=== PATIENT | female | born 1950 | race Caucasian/White ===

== ENCOUNTER 2024-03-03 19:45 | Inpatient (IN) | payer OTHER ==
[2024-03-03 21:16] VITALS: BP 131/76; PULSE 85; RESP 18; TEMP 98; O2SAT 95
[2024-03-04 03:44] VITALS: BP 156/90; PULSE 80; RESP 18; TEMP 97.7; O2SAT 97
[2024-03-04] MEDS ORDERED: LAMO-24 PO (05:16)
[2024-03-04] MEDS ORDERED: HYDR-4527 PO (05:16)
[2024-03-04] MEDS ORDERED: AMAN-24 PO (05:16)
[2024-03-04] MEDS ORDERED: DOCU-412 PO (05:16)
[2024-03-04] MEDS ORDERED: CYAN500T56 PO (05:16)
[2024-03-04] MEDS ORDERED: BENZ1LOZ50 PO (05:16)
[2024-03-04] MEDS ORDERED: PRAM1.5T12 PO (05:16)
[2024-03-04] MEDS ORDERED: QUET100T PO (05:16)
[2024-03-04] MEDS ORDERED: QUET25TA PO (05:16)
[2024-03-04] MEDS ORDERED: CARB-225 PO (05:16)
[2024-03-04] MEDS ORDERED: BENZ-227 PO (05:16)
[2024-03-04] MEDS ORDERED: METH1TAB66 PO (05:16)
[2024-03-04] MEDS ORDERED: CLON-592 PO (05:16)
[2024-03-04] MEDS ORDERED: NALO4SPR NASAL (05:16)
[2024-03-04] MEDS ORDERED: OMEP20 PO (05:16)
[2024-03-04] MEDS ORDERED: POLY17PO47 PO (05:16)
[2024-03-04] MEDS ORDERED: PSYL575P22 PO (05:16)
[2024-03-04] MEDS ORDERED: CARB1TAB36 PO (05:16)
[2024-03-04] MEDS ORDERED: ACET-3385 PO (05:16)
[2024-03-04] MEDS ORDERED: VENL-67 PO (05:16)
[2024-03-04] MEDS ORDERED: LEVO75 PO (05:16)
[2024-03-04] MEDS ORDERED: XALA2.5OS OU (05:16)
[2024-03-04] MEDS ORDERED: LOPE-232 PO (05:16)
[2024-03-04] MEDS ORDERED: NYST30CR9 TP (05:16)
[2024-03-04] MEDS ORDERED: CHOL25TA4 PO (05:16)
[2024-03-04] MEDS ORDERED: MELA5TAB40 PO (05:16)
[2024-03-04] MEDS ORDERED: FLUT16SP NASAL (05:16)
[2024-03-04 07:48] LABS: BASOPHILS % (AUTO) 0.5 % (0.0-2.0); EOSINOPHILS % (AUTO) 3.5 % (1.0-6.0); HEMATOCRIT 39.1 % (36-46); HEMOGLOBIN 12.4 g/dL (12.0-16.0); LYMPHOCYTES # (AUTO) 1.5 K/uL (1.0-4.8); LYMPHOCYTES % (AUTO) 22.1 % (22.0-44.0); MEAN CORPUSCULAR HEMOGLOBIN 27.8 pg (26.0-34.0); MEAN CORPUSCULAR HGB CONC 31.7 G/dL (31.0-37.0); MEAN CORPUSCULAR VOLUME 88 fL (80-100); MONOCYTES # (AUTO) 0.6 K/uL (0.1-1.0); MONOCYTES % (AUTO) 9.2 % (2.0-9.0); NEUTROPHILS # (AUTO) 4.3 K/uL (1.8-7.7); NEUTROPHILS % (AUTO) 64.7 % (40.0-70.0); PLATELET COUNT (AUTO) 245 K/uL (150-450); RED BLOOD CELL COUNT(AUTO) 4.47 MIL/uL (4.00-5.20); RED CELL DISTRIBUTION WIDTH 16.1 % (11.5-14.5); WHITE BLOOD COUNT (AUTO) 6.6 K/uL (4.5-11.0)
[2024-03-04] MEDS ORDERED: MAGNESIUM HYDROXIDE SUSPENSION 30 ML UDCUP PO PRN (08:00)
[2024-03-04] MEDS ORDERED: ACETAMINOPHEN 325 MG TABLET PO PRN (08:00)
[2024-03-04] MEDS ORDERED: DEXTROSE 50%-WATER 25 GM/50 ML SYRINGE IVP PRN (08:00)
[2024-03-04 08:24] LABS: ANION GAP 9 mmol/L (8-16); CALCIUM, TOTAL 9.3 mg/dL (8.8-10.5); CARBON DIOXIDE 27 mmol/L (22-29); CHLORIDE 105 mmol/L (98-107); CREATININE 0.44 mg/dL (0.60-1.30); GLOMERULAR FILTR. RATE CALC > 60 mL/min (>60); GLUCOSE,RANDOM 91 mg/dL (70-110); SODIUM SERUM 141 mmol/L (136-145); UREA NITROGEN, BLOOD 10 mg/dL (7-18)
[2024-03-04 08:30] VITALS: BP 160/60; PULSE 78; RESP 18; TEMP 97; O2SAT 99
[2024-03-04] MEDS: DOCUSATE SODIUM 100 MG CAPSULE PO SCH (10:19)
[2024-03-04] MEDS: LEVOTHYROXINE SODIUM 75 MCG TABLET PO SCH (10:19)
[2024-03-04] MEDS: MULTIVITAMINS WITH MINERALS, THERAPEUTIC TABLET PO SCH (10:19)
[2024-03-04] MEDS: HEPARIN SODIUM,PORCINE 5,000 UNITS/ML VIAL SQ SCH (10:19)
[2024-03-04] MEDS: QUEtiapine FUMARATE 25 MG TABLET PO SCH (10:20)
[2024-03-04] MEDS: FAMOTIDINE 20 MG TABLET PO SCH (10:20)
[2024-03-04] MEDS: CARBIDOPA/LEVODOPA 50-200 MG ER TABLET PO SCH (10:21)
[2024-03-04] MEDS: AMANTADINE HCL 100 MG CAPSULE PO SCH (10:22)
[2024-03-04] MEDS: LamoTRIgine 100 MG TABLET PO SCH (10:22)
[2024-03-04] MEDS: VENLAFAXINE HCL 75 MG ER CAPSULE PO SCH (10:23)
[2024-03-04 15:17] LABS: APPEARANCE,URINE CLEAR (CLEAR); BILIRUBIN,URINE NEGATIVE (NEGATIVE); COLOR,URINE LIGHT YELLOW (YELLOW); GLUCOSE, URINE (UA) NEGATIVE (NEGATIVE); KETONES,URINE NEGATIVE (NEGATIVE); LEUKOCYTE ESTERASE ,URINE TRACE (NEGATIVE); NITRATE,URINE NEGATIVE (NEGATIVE); OCCULT BLOOD,URINE NEGATIVE (NEGATIVE); PH,URINE 7.5 (5.0-8.0); PROTEIN,URINE TRACE mg/dL (NEGATIVE); SPECIFIC GRAVITIY, URINE 1.011 (1.003-1.030); UROBILINOGEN,URINE <=1.0 mg/dL (<=1.0)
[2024-03-04 15:40] LABS: BACTERIA,URINE Few /HPF (None Seen); RBC,URINE 0-2 /HPF (0-2); SQUAMOUS EPITHELIAL CELL,UR Few /LPF (None Seen); WBC,URINE 0-2 /HPF (0-5)
[2024-03-04 16:06] VITALS: BP 124/80; PULSE 85; RESP 18; TEMP 97.4; O2SAT 98
[2024-03-04 17:29] LABS: BASOPHILS % (AUTO) 0.4 % (0.0-2.0); EOSINOPHILS % (AUTO) 1.8 % (1.0-6.0); HEMATOCRIT 35.9 % (36-46); HEMOGLOBIN 11.6 g/dL (12.0-16.0); LYMPHOCYTES # (AUTO) 1.6 K/uL (1.0-4.8); LYMPHOCYTES % (AUTO) 26.8 % (22.0-44.0); MEAN CORPUSCULAR HEMOGLOBIN 28.1 pg (26.0-34.0); MEAN CORPUSCULAR HGB CONC 32.4 G/dL (31.0-37.0); MEAN CORPUSCULAR VOLUME 87 fL (80-100); MONOCYTES # (AUTO) 0.5 K/uL (0.1-1.0); MONOCYTES % (AUTO) 8.3 % (2.0-9.0); NEUTROPHILS # (AUTO) 3.9 K/uL (1.8-7.7); NEUTROPHILS % (AUTO) 62.7 % (40.0-70.0); PLATELET COUNT (AUTO) 233 K/uL (150-450); RED BLOOD CELL COUNT(AUTO) 4.15 MIL/uL (4.00-5.20); WHITE BLOOD COUNT (AUTO) 6.1 K/uL (4.5-11.0)
[2024-03-04 19:26] LABS: GLUCOMETER DEV NAME(LOC) 6S.2; GLUCOSE,POINT OF CARE 88 MG/DL (70-110)
[2024-03-04 20:00] VITALS: BP 154/96; PULSE 89; RESP 18; TEMP 97.9; O2SAT 96
[2024-03-04] MEDS: LATANOPROST 0.005% 2.5 ML OPHTHALMIC SOLUTION OU SCH (21:26)
[2024-03-04] MEDS: QUEtiapine FUMARATE 100 MG TABLET PO SCH (21:27)
[2024-03-04] MEDS: ClonazePAM 0.5 MG TABLET PO SCH (21:27)
[2024-03-05 05:28] VITALS: BP 153/93; PULSE 74; RESP 19; TEMP 97.7; O2SAT 95
[2024-03-05 06:56] LABS: GLUCOMETER DEV NAME(LOC) 6S.2; GLUCOSE,POINT OF CARE 82 MG/DL (70-110)
[2024-03-05 06:56] LABS: GLUCOMETER DEV NAME(LOC) 6S.2; GLUCOSE,POINT OF CARE 83 MG/DL (70-110)
[2024-03-05 07:32] VITALS: BP 156/98; PULSE 76; RESP 18; TEMP 98.2; O2SAT 96
[2024-03-05] MEDS: QUEtiapine FUMARATE 25 MG TABLET PO SCH (08:26)
[2024-03-05 15:23] VITALS: BP 161/95; PULSE 83; RESP 20; TEMP 98.4; O2SAT 100
[2024-03-05 20:00] VITALS: BP 126/68; PULSE 86; RESP 19; TEMP 98; O2SAT 98
[2024-03-06 04:34] VITALS: BP 131/84; PULSE 90; RESP 20; TEMP 97.8; O2SAT 96
[2024-03-06 04:51] LABS: GLUCOMETER DEV NAME(LOC) 6S.2; GLUCOSE,POINT OF CARE 96 MG/DL (70-110)
[2024-03-06 04:51] LABS: GLUCOMETER DEV NAME(LOC) 6S.2; GLUCOSE,POINT OF CARE 112 MG/DL (70-110)
[2024-03-06 06:55] LABS: GLUCOMETER DEV NAME(LOC) 6S.2; GLUCOSE,POINT OF CARE 127 MG/DL (70-110)
[2024-03-06 07:41] VITALS: BP 136/94; PULSE 86; RESP 20; TEMP 97.8; O2SAT 99
[2024-03-06] MEDS: INSULIN LISPRO 100 UNITS/ML SQ PRN (11:52)
[2024-03-06 12:20] LABS: GLUCOMETER DEV NAME(LOC) 6S.2; GLUCOSE,POINT OF CARE 281 MG/DL (70-110)
[2024-03-06] MEDS ORDERED: QUET300T2 PO (13:47)
[2024-03-06 15:54] VITALS: BP 133/85; PULSE 94; RESP 20; TEMP 97.9; O2SAT 97
[2024-03-06] MEDS: QUEtiapine FUMARATE 25 MG TABLET PO SCH (16:49)
[2024-03-06 17:56] LABS: GLUCOMETER DEV NAME(LOC) 6S.2; GLUCOSE,POINT OF CARE 88 MG/DL (70-110)
[2024-03-06 19:45] VITALS: BP 122/63; PULSE 94; RESP 18; TEMP 97.4; O2SAT 97
[2024-03-06 21:00] LABS: GLUCOMETER DEV NAME(LOC) 6S.2; GLUCOSE,POINT OF CARE 153 MG/DL (70-110)
[2024-03-07 06:22] VITALS: BP 141/82; PULSE 89; RESP 18
[2024-03-07 07:43] VITALS: BP 128/61; PULSE 94; RESP 19; TEMP 98; O2SAT 96
[2024-03-07 14:45] LABS: GLUCOMETER DEV NAME(LOC) 6S.2; GLUCOSE,POINT OF CARE 91 MG/DL (70-110)
[2024-03-07 16:41] VITALS: BP 132/84; PULSE 86; RESP 19; TEMP 98; O2SAT 96
[2024-03-07 19:56] LABS: GLUCOMETER DEV NAME(LOC) 6S.2; GLUCOSE,POINT OF CARE 107 MG/DL (70-110)
[2024-03-08 00:11] VITALS: BP 146/89; PULSE 85; RESP 18; TEMP 98.3; O2SAT 94
[2024-03-08 00:50] LABS: GLUCOMETER DEV NAME(LOC) 6S.2; GLUCOSE,POINT OF CARE 116 MG/DL (70-110)
[2024-03-08 05:02] VITALS: BP 133/70; PULSE 92; RESP 18; TEMP 97.9; O2SAT 96
[2024-03-08 07:05] LABS: GLUCOMETER DEV NAME(LOC) 6S.2; GLUCOSE,POINT OF CARE 72 MG/DL (70-110)
[2024-03-08 07:51] VITALS: BP 145/87; PULSE 83; RESP 18; TEMP 97.9; O2SAT 99
[2024-03-08 12:30] LABS: BASOPHILS % (AUTO) 0.4 % (0.0-2.0); EOSINOPHILS % (AUTO) 1.8 % (1.0-6.0); HEMOGLOBIN 12.5 g/dL (12.0-16.0); LYMPHOCYTES # (AUTO) 1.1 K/uL (1.0-4.8); LYMPHOCYTES % (AUTO) 22.7 % (22.0-44.0); MEAN CORPUSCULAR HGB CONC 32.1 G/dL (31.0-37.0); MEAN CORPUSCULAR VOLUME 87 fL (80-100); MONOCYTES # (AUTO) 0.4 K/uL (0.1-1.0); MONOCYTES % (AUTO) 7.3 % (2.0-9.0); NEUTROPHILS # (AUTO) 3.4 K/uL (1.8-7.7); NEUTROPHILS % (AUTO) 67.8 % (40.0-70.0); PLATELET COUNT (AUTO) 235 K/uL (150-450); RED BLOOD CELL COUNT(AUTO) 4.48 MIL/uL (4.00-5.20); RED CELL DISTRIBUTION WIDTH 16.1 % (11.5-14.5)
[2024-03-08 12:31] LABS: GLUCOMETER DEV NAME(LOC) 6S.2; GLUCOSE,POINT OF CARE 97 MG/DL (70-110)
[2024-03-08 12:40] LABS: ANION GAP 7 mmol/L (8-16); CALCIUM, TOTAL 9.6 mg/dL (8.8-10.5); CARBON DIOXIDE 31 mmol/L (22-29); CHLORIDE 103 mmol/L (98-107); CREATININE 0.61 mg/dL (0.60-1.30); GLOMERULAR FILTR. RATE CALC > 60 mL/min (>60); GLUCOSE,RANDOM 108 mg/dL (70-110); POTASSIUM 4.2 mmol/L (3.5-5.1); SODIUM SERUM 141 mmol/L (136-145); UREA NITROGEN, BLOOD 8 mg/dL (7-18)
[2024-03-08 15:01] VITALS: BP 127/78; PULSE 98; RESP 19; TEMP 98; O2SAT 95
[2024-03-08 19:15] LABS: GLUCOMETER DEV NAME(LOC) 6S.2; GLUCOSE,POINT OF CARE 124 MG/DL (70-110)
[2024-03-08 19:39] VITALS: BP 140/80; PULSE 97; RESP 18; TEMP 98.2; O2SAT 98
[2024-03-09 00:54] VITALS: BP 138/86; PULSE 89; RESP 18; TEMP 97.9; O2SAT 97
[2024-03-09 04:30] VITALS: PULSE 87; RESP 18; TEMP 97.8; O2SAT 96
[2024-03-09 05:30] VITALS: BP 150/86
[2024-03-09 07:42] VITALS: BP 148/88; PULSE 82; RESP 18; TEMP 97.7; O2SAT 98
[2024-03-09 07:51] LABS: GLUCOMETER DEV NAME(LOC) 6S.2; GLUCOSE,POINT OF CARE 87 MG/DL (70-110)
[2024-03-09 07:51] LABS: GLUCOMETER DEV NAME(LOC) 6S.2; GLUCOSE,POINT OF CARE 105 MG/DL (70-110)
[2024-03-09 10:32] LABS: COVID AG,FIA SOURCE NASAL SWAB
[2024-03-09 10:53] LABS: SARS-COV2 (COVID) ANTIGEN,FIA Negative (Negative)
[2024-03-09 15:42] VITALS: BP 128/74; PULSE 101; RESP 18; TEMP 98.2; O2SAT 94
[2024-03-09 16:06] VITALS: O2SAT 99
[2024-03-09 17:11] LABS: GLUCOMETER DEV NAME(LOC) 6S.2; GLUCOSE,POINT OF CARE 142 MG/DL (70-110)
[2024-03-09 21:30] LABS: GLUCOMETER DEV NAME(LOC) 3E.I 2; GLUCOSE,POINT OF CARE 104 MG/DL (70-110)
== END 2024-03-09 16:45 | DRG 885 ==
LOC: 6S 19:45
PROVIDERS: ADMIT Internal Medicine; ATTEND Internal Medicine
DX: F25.1 Schizoaffective disorder, depressive type (principal); N39.0 Urinary tract infection, site not specified; I50.32 Chronic diastolic (congestive) heart failure; J96.10 Chronic respiratory failure, unspecified whether with hypoxia or hypercapnia; E03.9 Hypothyroidism, unspecified; G20.A1 Parkinson's disease without dyskinesia, without mention of fluctuations; G47.33 Obstructive sleep apnea (adult) (pediatric); M81.0 Age-related osteoporosis without current pathological fracture; Z20.822 Contact with and (suspected) exposure to COVID-19; K21.9 Gastro-esophageal reflux disease without esophagitis; R91.1 Solitary pulmonary nodule; F41.9 Anxiety disorder, unspecified; Z66 Do not resuscitate; D63.8 Anemia in other chronic diseases classified elsewhere; I11.0 Hypertensive heart disease with heart failure; G25.81 Restless legs syndrome; K44.9 Diaphragmatic hernia without obstruction or gangrene; I87.2 Venous insufficiency (chronic) (peripheral); E11.40 Type 2 diabetes mellitus with diabetic neuropathy, unspecified; Z79.899 Other long term (current) drug therapy; Z95.828 Presence of other vascular implants and grafts; Z86.718 Personal history of other venous thrombosis and embolism; Z88.1 Allergy status to other antibiotic agents; Z88.8 Allergy status to other drugs, medicaments and biological substances; Z91.048 Other nonmedicinal substance allergy status
CPT/HCPCS: 71045; 80048; 81001; 82962; 85025; 87081; 92610; 97163; 97167; 97530; 97535; J1644; 36415-L1; 36415-TC

== ENCOUNTER 2024-03-07 10:12 | Inpatient (IN) | payer OTHER ==
[~2024-03-07] VITALS: Ht 154.9 cm; Wt 66.2 kg
[~2024-03-07 10:12] MED LIST: ACET-3385 PO; AMAN-24 PO; BENZ-227 PO; BENZ1LOZ50 PO; CARB-225 PO; CARB1TAB36 PO; CHOL25TA4 PO; CLON-592 PO; CYAN500T56 PO; DOCU-412 PO; FLUT16SP NASAL; HYDR-4527 PO; LAMO-24 PO; LEVO75 PO; LOPE-232 PO; MELA5TAB40 PO; METH1TAB66 PO; NALO4SPR NASAL; NYST30CR9 TP; OMEP20 PO; POLY17PO47 PO; PRAM1.5T12 PO; PSYL575P22 PO; QUET25TA PO; QUET300T2 PO; VENL-67 PO; XALA2.5OS OU
[2024-03-09] MEDS ORDERED: LORazepam 1 MG TABLET PO PRN (10:45)
[2024-03-09 17:04] VITALS: BP 138/91; PULSE 95; RESP 18; TEMP 98.8; O2SAT 98
[2024-03-09 20:55] VITALS: BP 138/81; PULSE 97; RESP 18; TEMP 98.9; O2SAT 97
[2024-03-09] MEDS: QUEtiapine FUMARATE 25 MG TABLET PO SCH (21:29)
[2024-03-09] MEDS: ClonazePAM 0.5 MG TABLET PO SCH (21:29)
[2024-03-09] MEDS: AMANTADINE HCL 100 MG CAPSULE PO SCH (21:29)
[2024-03-09] MEDS ORDERED: DEXTROSE 50%-WATER 25 GM/50 ML SYRINGE IVP PRN (21:30)
[2024-03-09] MEDS: LATANOPROST 0.005% 2.5 ML OPHTHALMIC SOLUTION OU SCH (22:00)
[2024-03-10] MEDS: INSULIN LISPRO 100 UNITS/ML SQ PRN (06:36)
[2024-03-10] MEDS: LEVOTHYROXINE SODIUM 75 MCG TABLET PO SCH (06:37)
[2024-03-10 06:40] LABS: GLUCOMETER DEV NAME(LOC) 3E.I 2; GLUCOSE,POINT OF CARE 103 MG/DL (70-110)
[2024-03-10 08:01] VITALS: BP 160/89; PULSE 82; RESP 18; TEMP 98.1; O2SAT 95
[2024-03-10] MEDS: CARBIDOPA/LEVODOPA 50-200 MG ER TABLET PO SCH (08:11)
[2024-03-10] MEDS: VENLAFAXINE HCL 75 MG ER CAPSULE PO SCH (08:11)
[2024-03-10] MEDS: AmLODIPine BESYLATE 5 MG TABLET PO SCH (08:14)
[2024-03-10 09:11] LABS: TROPONIN I-HIGH SENSITIVITY 12 ng/L (<51)
[2024-03-10] MEDS ORDERED: CloNIDine HCL 0.1 MG TABLET PO PRN (10:45)
[2024-03-10] MEDS ORDERED: MAG HYDROX/ALUMINUM HYD/SIMETH ES 30 ML SUSPENSION UDCUP PO PRN (10:45)
[2024-03-10] MEDS ORDERED: ALBUTEROL SULFATE HFA 90 MCG/PUFF 8 GM INHALER IH PRN (10:45)
[2024-03-10] MEDS ORDERED: MAGNESIUM HYDROXIDE SUSPENSION 30 ML UDCUP PO PRN (10:45)
[2024-03-10] MEDS ORDERED: PETROLATUM,WHITE 28 GM JELLY TP PRN (10:45)
[2024-03-10] MEDS ORDERED: LOPERAMIDE HCL 2 MG CAPSULE PO PRN (10:45)
[2024-03-10 11:36] LABS: GLUCOMETER DEV NAME(LOC) 3EX.2; GLUCOSE,POINT OF CARE 145 MG/DL (70-110)
[2024-03-10] MEDS: PRAMIPEXOLE DI HCL 1.5 MG PO SCH (12:25)
[2024-03-10 17:06] LABS: GLUCOMETER DEV NAME(LOC) 3EX.2; GLUCOSE,POINT OF CARE 121 MG/DL (70-110)
[2024-03-10 20:28] VITALS: BP 141/61; PULSE 18; RESP 18; TEMP 97.5; O2SAT 95
[2024-03-10 21:16] LABS: GLUCOMETER DEV NAME(LOC) 3E.I 2; GLUCOSE,POINT OF CARE 146 MG/DL (70-110)
[2024-03-10] MEDS: ZOLPIDEM TARTRATE 5 MG TABLET PO PRN (21:24)
[2024-03-11 06:15] LABS: GLUCOMETER DEV NAME(LOC) 3E.I 2; GLUCOSE,POINT OF CARE 151 MG/DL (70-110)
[2024-03-11] MEDS: FLUTICASONE PROPIONATE 50 MCG/SPRAY 16 GM NASAL SPRAY NASAL SCH (08:12)
[2024-03-11 11:36] LABS: GLUCOMETER DEV NAME(LOC) 3EX.2; GLUCOSE,POINT OF CARE 71 MG/DL (70-110)
[2024-03-11 12:31] LABS: ALANINE AMINOTRANSFERASE 10 U/L (12-78); ALBUMIN 3.3 g/dL (3.4-5.0); ALKALINE PHOSPHATASE 91 U/L (46-116); ANION GAP 6 mmol/L (8-16); ASPARTATE AMINOTRANSFERASE 25 U/L (15-37); BILIRUBIN,TOTAL 0.4 mg/dL (0.1-1.0); CALCIUM, TOTAL 9.3 mg/dL (8.8-10.5); CARBON DIOXIDE 30 mmol/L (22-29); CHLORIDE 101 mmol/L (98-107); CHOLESTEROL 170 mg/dL (131-200); CREATININE 0.65 mg/dL (0.60-1.30); GLOMERULAR FILTR. RATE CALC > 60 mL/min (>60); GLUCOSE,RANDOM 98 mg/dL (70-110); HDL CHOLESTEROL 56 mg/dL (40-60); LDL CHOL (CALC.) 101 mg/dL (0-130); POTASSIUM 4.2 mmol/L (3.5-5.1); SODIUM SERUM 137 mmol/L (136-145); TOTAL PROTEIN, SERUM 7.1 g/dL (6.4-8.2); TRIGLYCERIDES 64 mg/dL (15-150); UREA NITROGEN, BLOOD 13 mg/dL (7-18)
[2024-03-11] MEDS: ONDANSETRON 4 MG TABLET PO PRN (12:39)
[2024-03-11 12:42] LABS: THYROID STIMULATING HORMONE 1.61 uIU/mL (0.36-3.74)
[2024-03-11 14:44] VITALS: BP 127/93; PULSE 87; RESP 19; TEMP 98.5; O2SAT 98
[2024-03-11 16:41] LABS: GLUCOMETER DEV NAME(LOC) 3E.I 2; GLUCOSE,POINT OF CARE 224 MG/DL (70-110)
[2024-03-11] MEDS: LORazepam 1 MG TABLET PO PRN (17:46)
[2024-03-11 20:35] VITALS: BP 103/61; PULSE 87; RESP 18; TEMP 97.6; O2SAT 96
[2024-03-11 20:35] LABS: GLUCOMETER DEV NAME(LOC) 3E.I 2; GLUCOSE,POINT OF CARE 79 MG/DL (70-110)
[2024-03-12 06:16] LABS: GLUCOMETER DEV NAME(LOC) 3E.I 2; GLUCOSE,POINT OF CARE 42 MG/DL (70-110)
[2024-03-12 06:16] LABS: GLUCOMETER DEV NAME(LOC) 3E.I 2; GLUCOSE,POINT OF CARE 42 MG/DL (70-110)
[2024-03-12 06:31] LABS: GLUCOMETER DEV NAME(LOC) 3E.I 2; GLUCOSE,POINT OF CARE 73 MG/DL (70-110)
[2024-03-12 08:33] VITALS: BP 106/65; PULSE 84; RESP 18; TEMP 97.7; O2SAT 94
[2024-03-12 09:38] LABS: BASOPHILS % (AUTO) 0.4 % (0.0-2.0); HEMATOCRIT 38.1 % (36-46); HEMOGLOBIN 12.2 g/dL (12.0-16.0); LYMPHOCYTES # (AUTO) 0.9 K/uL (1.0-4.8); LYMPHOCYTES % (AUTO) 16.2 % (22.0-44.0); MEAN CORPUSCULAR HEMOGLOBIN 28.1 pg (26.0-34.0); MEAN CORPUSCULAR VOLUME 88 fL (80-100); MONOCYTES # (AUTO) 0.5 K/uL (0.1-1.0); MONOCYTES % (AUTO) 8.6 % (2.0-9.0); NEUTROPHILS % (AUTO) 71.8 % (40.0-70.0); PLATELET COUNT (AUTO) 237 K/uL (150-450); RED BLOOD CELL COUNT(AUTO) 4.33 MIL/uL (4.00-5.20); RED CELL DISTRIBUTION WIDTH 16.1 % (11.5-14.5); WHITE BLOOD COUNT (AUTO) 5.6 K/uL (4.5-11.0)
[2024-03-12 11:40] LABS: GLUCOMETER DEV NAME(LOC) 3EX.2; GLUCOSE,POINT OF CARE 106 MG/DL (70-110)
[2024-03-12 17:25] LABS: GLUCOMETER DEV NAME(LOC) 3EX.2; GLUCOSE,POINT OF CARE 118 MG/DL (70-110)
[2024-03-12 21:10] LABS: GLUCOMETER DEV NAME(LOC) 3E.I 2; GLUCOSE,POINT OF CARE 127 MG/DL (70-110)
[2024-03-12 21:45] VITALS: RESP 18
[2024-03-13 05:46] LABS: GLUCOMETER DEV NAME(LOC) 3E.I 2; GLUCOSE,POINT OF CARE 95 MG/DL (70-110)
[2024-03-13 08:52] VITALS: BP 112/68; PULSE 83; RESP 18; TEMP 97.3; O2SAT 96
[2024-03-13 12:26] LABS: GLUCOMETER DEV NAME(LOC) 3E.I 2; GLUCOSE,POINT OF CARE 88 MG/DL (70-110)
[2024-03-13 17:51] LABS: GLUCOMETER DEV NAME(LOC) 3E.I 2; GLUCOSE,POINT OF CARE 107 MG/DL (70-110)
[2024-03-13 20:30] VITALS: BP 112/65; PULSE 73; RESP 18; TEMP 98; O2SAT 98
[2024-03-13 20:51] LABS: GLUCOMETER DEV NAME(LOC) 3E.I 2; GLUCOSE,POINT OF CARE 91 MG/DL (70-110)
[2024-03-13] MEDS: QUEtiapine FUMARATE 100 MG TABLET PO PRN (20:57)
[2024-03-14 05:46] LABS: GLUCOMETER DEV NAME(LOC) 3E.I 2; GLUCOSE,POINT OF CARE 110 MG/DL (70-110)
[2024-03-14 09:15] VITALS: BP 105/69; PULSE 77; RESP 18; TEMP 97.9; O2SAT 97
[2024-03-14 11:51] LABS: GLUCOMETER DEV NAME(LOC) 3E.I 2; GLUCOSE,POINT OF CARE 121 MG/DL (70-110)
[2024-03-14 16:36] LABS: GLUCOMETER DEV NAME(LOC) 3E.I 2; GLUCOSE,POINT OF CARE 122 MG/DL (70-110)
[2024-03-14 19:46] LABS: GLUCOMETER DEV NAME(LOC) 3E.I 2; GLUCOSE,POINT OF CARE 107 MG/DL (70-110)
[2024-03-14 20:21] VITALS: BP 112/78; PULSE 81; RESP 18; TEMP 97.6; O2SAT 98
[2024-03-15 06:50] LABS: GLUCOMETER DEV NAME(LOC) 3E.I 2; GLUCOSE,POINT OF CARE 113 MG/DL (70-110)
[2024-03-15 06:50] LABS: GLUCOMETER DEV NAME(LOC) 3E.I 2; GLUCOSE,POINT OF CARE 65 MG/DL (70-110)
[2024-03-15 10:57] VITALS: BP 120/65; PULSE 90; RESP 19; TEMP 98.8; O2SAT 90
[2024-03-15 12:10] LABS: GLUCOMETER DEV NAME(LOC) 3EX.2; GLUCOSE,POINT OF CARE 90 MG/DL (70-110)
[2024-03-15 18:11] LABS: GLUCOMETER DEV NAME(LOC) 3EX.2; GLUCOSE,POINT OF CARE 102 MG/DL (70-110)
[2024-03-15 20:06] LABS: GLUCOMETER DEV NAME(LOC) 3E.I 2; GLUCOSE,POINT OF CARE 92 MG/DL (70-110)
[2024-03-15 22:14] VITALS: BP 97/60; PULSE 79; RESP 18; TEMP 97.3; O2SAT 98
[2024-03-16 06:45] LABS: GLUCOMETER DEV NAME(LOC) 3E.I 2; GLUCOSE,POINT OF CARE 98 MG/DL (70-110)
[2024-03-16 06:50] LABS: GLUCOMETER DEV NAME(LOC) 3E.I 2; GLUCOSE,POINT OF CARE 57 MG/DL (70-110)
[2024-03-16 09:03] VITALS: BP 140/74; PULSE 84; RESP 16; TEMP 98.3; O2SAT 97
[2024-03-16 22:11] LABS: GLUCOMETER DEV NAME(LOC) 3E.I 2; GLUCOSE,POINT OF CARE 90 MG/DL (70-110)
[2024-03-16 23:50] VITALS: BP 131/82; PULSE 90; RESP 18; TEMP 97.1; O2SAT 98
[2024-03-17 05:51] LABS: GLUCOMETER DEV NAME(LOC) 3E.I 2; GLUCOSE,POINT OF CARE 59 MG/DL (70-110)
[2024-03-17 05:51] LABS: GLUCOMETER DEV NAME(LOC) 3E.C; GLUCOSE,POINT OF CARE 73 MG/DL (70-110)
[2024-03-17 08:24] VITALS: BP 125/78; PULSE 101; RESP 18; TEMP 97.5; O2SAT 98
[2024-03-17 12:05] LABS: GLUCOMETER DEV NAME(LOC) 3EX.2; GLUCOSE,POINT OF CARE 63 MG/DL (70-110)
[2024-03-17 12:40] LABS: GLUCOMETER DEV NAME(LOC) 3EX.2; GLUCOSE,POINT OF CARE 92 MG/DL (70-110)
[2024-03-17] MEDS: IBUPROFEN 400 MG TABLET PO PRN (14:32)
[2024-03-17 17:16] LABS: GLUCOMETER DEV NAME(LOC) 3EX.2; GLUCOSE,POINT OF CARE 107 MG/DL (70-110)
[2024-03-17] MEDS: QUEtiapine FUMARATE 100 MG TABLET PO SCH (17:38)
[2024-03-17 21:21] LABS: GLUCOMETER DEV NAME(LOC) 3E.I 2; GLUCOSE,POINT OF CARE 122 MG/DL (70-110)
[2024-03-17 23:19] VITALS: BP 102/60; PULSE 78; RESP 18; TEMP 97.8; O2SAT 96
[2024-03-18 06:31] LABS: GLUCOMETER DEV NAME(LOC) 3E.I 2; GLUCOSE,POINT OF CARE 83 MG/DL (70-110)
[2024-03-18 08:43] VITALS: BP 125/72; PULSE 88; RESP 18; TEMP 97.5; O2SAT 97
[2024-03-18] MEDS: DOCUSATE SODIUM 100 MG CAPSULE PO PRN (10:03)
[2024-03-18 11:36] LABS: GLUCOMETER DEV NAME(LOC) 3E.I 2; GLUCOSE,POINT OF CARE 102 MG/DL (70-110)
[2024-03-18 17:11] LABS: GLUCOMETER DEV NAME(LOC) 3EX.2; GLUCOSE,POINT OF CARE 88 MG/DL (70-110)
[2024-03-18 20:45] VITALS: RESP 18; TEMP 97.5
[2024-03-18 21:36] LABS: GLUCOMETER DEV NAME(LOC) 3E.I 2; GLUCOSE,POINT OF CARE 97 MG/DL (70-110)
[2024-03-18 23:51] VITALS: BP 109/70; RESP 18
[2024-03-19 06:01] LABS: GLUCOMETER DEV NAME(LOC) 3E.I 2; GLUCOSE,POINT OF CARE 73 MG/DL (70-110)
[2024-03-19 09:14] VITALS: BP 119/64; PULSE 92; RESP 18; TEMP 97.8; O2SAT 98
[2024-03-19 10:08] VITALS: BP 119/64; PULSE 92; RESP 18; TEMP 97.8; O2SAT 98
[2024-03-19 11:51] LABS: GLUCOMETER DEV NAME(LOC) 3EX.2; GLUCOSE,POINT OF CARE 110 MG/DL (70-110)
[2024-03-19 16:56] LABS: GLUCOMETER DEV NAME(LOC) 3EX.2; GLUCOSE,POINT OF CARE 106 MG/DL (70-110)
[2024-03-19 20:36] VITALS: BP 90/61; RESP 18; O2SAT 96
[2024-03-19 21:41] LABS: GLUCOMETER DEV NAME(LOC) 3E.I 2; GLUCOSE,POINT OF CARE 100 MG/DL (70-110)
[2024-03-20 06:16] LABS: GLUCOMETER DEV NAME(LOC) 3E.I 2; GLUCOSE,POINT OF CARE 81 MG/DL (70-110)
[2024-03-20 06:16] LABS: GLUCOMETER DEV NAME(LOC) 3E.I 2; GLUCOSE,POINT OF CARE 40 MG/DL (70-110)
[2024-03-20 08:46] VITALS: BP 122/85; PULSE 94; RESP 18; TEMP 97.7; O2SAT 98
[2024-03-20] MEDS: BACITRACIN 28 GM OINTMENT TP SCH (09:12)
[2024-03-20 11:51] LABS: GLUCOMETER DEV NAME(LOC) 3EX.2; GLUCOSE,POINT OF CARE 95 MG/DL (70-110)
[2024-03-20 17:46] LABS: GLUCOMETER DEV NAME(LOC) 3EX.2; GLUCOSE,POINT OF CARE 103 MG/DL (70-110)
[2024-03-20 20:02] VITALS: BP 122/63; PULSE 90; RESP 18; TEMP 98.4; O2SAT 98
[2024-03-20 20:05] LABS: GLUCOMETER DEV NAME(LOC) 3E.I 2; GLUCOSE,POINT OF CARE 135 MG/DL (70-110)
[2024-03-20 21:49] VITALS: BP 128/70; PULSE 87; RESP 18; TEMP 98; O2SAT 97
[2024-03-20 22:52] VITALS: RESP 18
[2024-03-21 06:50] LABS: GLUCOMETER DEV NAME(LOC) 3E.I 2; GLUCOSE,POINT OF CARE 92 MG/DL (70-110)
[2024-03-21 08:56] VITALS: BP 112/66; PULSE 92; RESP 18; TEMP 98.8; O2SAT 95
[2024-03-21 12:06] LABS: GLUCOMETER DEV NAME(LOC) 3EX.2; GLUCOSE,POINT OF CARE 131 MG/DL (70-110)
[2024-03-21 17:30] LABS: GLUCOMETER DEV NAME(LOC) 3EX.2; GLUCOSE,POINT OF CARE 72 MG/DL (70-110)
[2024-03-21 20:15] LABS: GLUCOMETER DEV NAME(LOC) 3E.I 2; GLUCOSE,POINT OF CARE 119 MG/DL (70-110)
[2024-03-21 21:37] VITALS: BP 113/60; PULSE 82; RESP 18; TEMP 97.4; O2SAT 96
[2024-03-22 06:15] LABS: GLUCOMETER DEV NAME(LOC) 3E.I 2; GLUCOSE,POINT OF CARE 64 MG/DL (70-110)
[2024-03-22 07:00] LABS: GLUCOMETER DEV NAME(LOC) 3E.I 2; GLUCOSE,POINT OF CARE 133 MG/DL (70-110)
[2024-03-22] MEDS: POLYETHYLENE GLYCOL 3350 17 GM PACKET PO PRN (08:01)
[2024-03-22] MEDS: GuaiFENesin/D-METHORPHAN [SUGAR-FREE] 200-20MG/10 ML SYRUP UDCUP PO PRN (08:15)
[2024-03-22 10:23] VITALS: BP 105/67; PULSE 87; RESP 19; TEMP 97; O2SAT 95
[2024-03-22 12:30] LABS: GLUCOMETER DEV NAME(LOC) 3E.I 2; GLUCOSE,POINT OF CARE 100 MG/DL (70-110)
[2024-03-22] MEDS: NYSTATIN 15 GM POWDER BOTTLE TP SCH (13:59)
[2024-03-22 17:15] LABS: GLUCOMETER DEV NAME(LOC) 3EX.2; GLUCOSE,POINT OF CARE 84 MG/DL (70-110)
[2024-03-22 20:22] VITALS: BP 138/81; PULSE 86; RESP 18; TEMP 98.1; O2SAT 98
[2024-03-22 21:11] LABS: GLUCOMETER DEV NAME(LOC) 3E.I 2; GLUCOSE,POINT OF CARE 118 MG/DL (70-110)
[2024-03-23 06:06] LABS: GLUCOMETER DEV NAME(LOC) 3E.I 2; GLUCOSE,POINT OF CARE 107 MG/DL (70-110)
[2024-03-23 08:54] VITALS: BP 116/67; PULSE 88; RESP 18; TEMP 97.8; O2SAT 98
[2024-03-23 11:36] LABS: GLUCOMETER DEV NAME(LOC) 3EX.2; GLUCOSE,POINT OF CARE 107 MG/DL (70-110)
[2024-03-23 15:12] LABS: APPEARANCE,URINE TURBID (CLEAR); BILIRUBIN,URINE NEGATIVE (NEGATIVE); COLOR,URINE YELLOW (YELLOW); GLUCOSE, URINE (UA) NEGATIVE (NEGATIVE); KETONES,URINE NEGATIVE (NEGATIVE); LEUKOCYTE ESTERASE ,URINE LARGE (NEGATIVE); NITRATE,URINE POSITIVE (NEGATIVE); OCCULT BLOOD,URINE NEGATIVE (NEGATIVE); PH,URINE 5.5 (5.0-8.0); PROTEIN,URINE 30-70 mg/dL (NEGATIVE); SPECIFIC GRAVITIY, URINE 1.018 (1.003-1.030); UROBILINOGEN,URINE <=1.0 mg/dL (<=1.0)
[2024-03-23 15:23] LABS: RBC,URINE 0-2 /HPF (0-2); WBC,URINE 51-100 /HPF (0-5)
[2024-03-23 15:24] LABS: BACTERIA,URINE Many /HPF (None Seen); SQUAMOUS EPITHELIAL CELL,UR Few /LPF (None Seen)
[2024-03-23 17:11] LABS: GLUCOMETER DEV NAME(LOC) 3E.I 2; GLUCOSE,POINT OF CARE 95 MG/DL (70-110)
[2024-03-23 21:01] LABS: GLUCOMETER DEV NAME(LOC) 3E.I 2; GLUCOSE,POINT OF CARE 87 MG/DL (70-110)
[2024-03-23 21:24] VITALS: BP 120/67; PULSE 89; RESP 18; TEMP 97.3; O2SAT 96
[2024-03-24 06:10] LABS: GLUCOMETER DEV NAME(LOC) 3E.I 2; GLUCOSE,POINT OF CARE 88 MG/DL (70-110)
[2024-03-24 06:50] VITALS: BP 126/78; PULSE 82; RESP 19; TEMP 97.9; O2SAT 98
[2024-03-24] MEDS: ACETAMINOPHEN 325 MG TABLET PO PRN (06:53)
[2024-03-24 08:37] VITALS: BP 122/77; PULSE 86; RESP 18; TEMP 97.4; O2SAT 98
[2024-03-24] MEDS: CEPHALEXIN MONOHYDRATE 500 MG CAPSULE PO SCH (09:13)
[2024-03-24] MEDS: HYDROCORTISONE 0.5% 30 GM CREAM TP ONE (16:19)
[2024-03-24 17:40] LABS: GLUCOMETER DEV NAME(LOC) 3E.I 2; GLUCOSE,POINT OF CARE 130 MG/DL (70-110)
[2024-03-24 17:40] LABS: GLUCOMETER DEV NAME(LOC) 3E.I 2; GLUCOSE,POINT OF CARE 94 MG/DL (70-110)
[2024-03-24 21:30] VITALS: BP 119/74; PULSE 90; RESP 18; TEMP 97.7; O2SAT 100
[2024-03-24 21:51] LABS: GLUCOMETER DEV NAME(LOC) 3E.I 2; GLUCOSE,POINT OF CARE 108 MG/DL (70-110)
[2024-03-25 06:20] LABS: GLUCOMETER DEV NAME(LOC) 3E.I 2; GLUCOSE,POINT OF CARE 93 MG/DL (70-110)
[2024-03-25 09:14] VITALS: BP 131/75; PULSE 82; RESP 18; TEMP 97.5; O2SAT 100
[2024-03-25 11:40] LABS: GLUCOMETER DEV NAME(LOC) 3EX.2; GLUCOSE,POINT OF CARE 99 MG/DL (70-110)
[2024-03-25 17:06] LABS: GLUCOMETER DEV NAME(LOC) 3E.I 2; GLUCOSE,POINT OF CARE 80 MG/DL (70-110)
[2024-03-25 22:02] VITALS: BP 107/66; PULSE 82; RESP 20; TEMP 97.7; O2SAT 94
[2024-03-26 05:50] LABS: GLUCOMETER DEV NAME(LOC) 3E.I 2; GLUCOSE,POINT OF CARE 114 MG/DL (70-110)
[2024-03-26 08:13] VITALS: BP 101/58; PULSE 84; RESP 18; TEMP 97.5; O2SAT 100
[2024-03-26] MEDS: PSYLLIUM SEED ORANGE SF 5.8 GM/PACKET PO SCH (08:16)
[2024-03-26 17:16] LABS: GLUCOMETER DEV NAME(LOC) 3EX.2; GLUCOSE,POINT OF CARE 89 MG/DL (70-110)
[2024-03-26 20:39] VITALS: BP 117/79; PULSE 87; RESP 18; TEMP 98.2; O2SAT 96
[2024-03-27 05:41] LABS: GLUCOMETER DEV NAME(LOC) 3E.I 2; GLUCOSE,POINT OF CARE 97 MG/DL (70-110)
[2024-03-27 09:36] VITALS: BP 130/87; PULSE 77; RESP 18; TEMP 98.5; O2SAT 96
[2024-03-27 17:11] LABS: GLUCOMETER DEV NAME(LOC) 3EX.2; GLUCOSE,POINT OF CARE 105 MG/DL (70-110)
[2024-03-27 20:10] LABS: GLUCOMETER DEV NAME(LOC) 3E.I 2; GLUCOSE,POINT OF CARE 128 MG/DL (70-110)
[2024-03-27 20:48] VITALS: BP 126/72; PULSE 89; RESP 18; TEMP 97.6; O2SAT 97
[2024-03-28 06:20] LABS: GLUCOMETER DEV NAME(LOC) 3E.I 2; GLUCOSE,POINT OF CARE 83 MG/DL (70-110)
[2024-03-28] MEDS: CLOBETASOL 0.05% 25 ML SOLUTION TP SCH (08:23)
[2024-03-28 08:35] VITALS: BP 112/62; PULSE 85; RESP 19; TEMP 97.6; O2SAT 100
[2024-03-28 16:50] LABS: GLUCOMETER DEV NAME(LOC) 3EX.2; GLUCOSE,POINT OF CARE 134 MG/DL (70-110)
[2024-03-28] MEDS: NYSTATIN 30 GM OINTMENT TP SCH (17:00)
[2024-03-28 20:35] VITALS: BP 103/79; PULSE 99; RESP 18; TEMP 97.4; O2SAT 99
[2024-03-29 05:51] LABS: GLUCOMETER DEV NAME(LOC) 3E.I 2; GLUCOSE,POINT OF CARE 129 MG/DL (70-110)
[2024-03-29 08:02] VITALS: BP 120/74; PULSE 84; RESP 18; TEMP 97.2; O2SAT 97
[2024-03-29 17:06] LABS: GLUCOMETER DEV NAME(LOC) 3EX.2; GLUCOSE,POINT OF CARE 127 MG/DL (70-110)
[2024-03-29 21:05] VITALS: BP 108/65; PULSE 89; RESP 17; TEMP 97.6; O2SAT 96
[2024-03-29 23:57] LABS: PH,URINE DRUG SCREEN 6.5 (5.0-8.0)
[2024-03-29 23:58] LABS: APPEARANCE,URINE CLEAR (CLEAR); BILIRUBIN,URINE NEGATIVE (NEGATIVE); COLOR,URINE COLORLESS (YELLOW); GLUCOSE, URINE (UA) NEGATIVE (NEGATIVE); KETONES,URINE NEGATIVE (NEGATIVE); LEUKOCYTE ESTERASE ,URINE NEGATIVE (NEGATIVE); NITRATE,URINE NEGATIVE (NEGATIVE); OCCULT BLOOD,URINE NEGATIVE (NEGATIVE); PH,URINE 6.5 (5.0-8.0); PROTEIN,URINE NEGATIVE (NEGATIVE); SPECIFIC GRAVITIY, URINE 1.004 (1.003-1.030); UROBILINOGEN,URINE <=1.0 mg/dL (<=1.0)
[2024-03-30 00:06] LABS: ALCOHOL, URINE DRUG SCREEN NEGATIVE (NEGATIVE); AMPHET/METH SCREEN,URINE NEGATIVE (NEGATIVE); BARBITURATE SCREEN, URINE NEGATIVE (NEGATIVE); BENZODIAZEPINES SCREEN,URINE NEGATIVE (NEGATIVE); CANNABINOID SCREEN,URINE NEGATIVE (NEGATIVE); COCAINE SCREEN,URINE NEGATIVE (NEGATIVE); METHADONE SCREEN, URINE NEGATIVE (NEGATIVE); OPIATE SCREEN,URINE NEGATIVE (NEGATIVE); PHENCYCLIDINE SCREEN,URINE NEGATIVE (NEGATIVE)
[2024-03-30 06:00] LABS: GLUCOMETER DEV NAME(LOC) 3E.I 2; GLUCOSE,POINT OF CARE 89 MG/DL (70-110)
[2024-03-30 10:48] VITALS: BP 153/81; PULSE 63; RESP 18; TEMP 97.5; O2SAT 99
[2024-03-30 17:16] LABS: GLUCOMETER DEV NAME(LOC) 3EX.2; GLUCOSE,POINT OF CARE 140 MG/DL (70-110)
[2024-03-30 20:00] VITALS: BP 121/85; PULSE 83; RESP 19; TEMP 97.8; O2SAT 99
[2024-03-31 07:00] LABS: GLUCOMETER DEV NAME(LOC) 3E.I 2; GLUCOSE,POINT OF CARE 129 MG/DL (70-110)
[2024-03-31 09:28] VITALS: BP 115/72; PULSE 73; RESP 18; TEMP 97.4; O2SAT 95
[2024-03-31] MEDS: QUEtiapine FUMARATE 100 MG TABLET PO ONE (10:19)
[2024-03-31 14:13] VITALS: BP 131/74; PULSE 70; RESP 18; O2SAT 95
[2024-03-31 15:19] VITALS: RESP 18
[2024-03-31] MEDS: QUEtiapine FUMARATE 200 MG TABLET PO SCH (16:23)
[2024-03-31 16:45] LABS: GLUCOMETER DEV NAME(LOC) 3E.I 2; GLUCOSE,POINT OF CARE 99 MG/DL (70-110)
[2024-03-31 20:43] VITALS: BP 118/73; PULSE 96; RESP 18; TEMP 96.9; O2SAT 100
[2024-04-01 06:45] LABS: GLUCOMETER DEV NAME(LOC) 3E.I 2; GLUCOSE,POINT OF CARE 100 MG/DL (70-110)
[2024-04-01 08:40] VITALS: BP 123/75; PULSE 96; RESP 18; TEMP 97.8; O2SAT 96
[2024-04-01 16:21] LABS: GLUCOMETER DEV NAME(LOC) 3EX.2; GLUCOSE,POINT OF CARE 101 MG/DL (70-110)
[2024-04-01 23:18] VITALS: RESP 18
[2024-04-02 06:36] LABS: GLUCOMETER DEV NAME(LOC) 3E.I 2; GLUCOSE,POINT OF CARE 93 MG/DL (70-110)
[2024-04-02 09:53] VITALS: BP 118/72; PULSE 85; RESP 18; TEMP 97.9; O2SAT 99
[2024-04-02 11:51] LABS: GLUCOMETER DEV NAME(LOC) 3EX.2; GLUCOSE,POINT OF CARE 142 MG/DL (70-110)
[2024-04-02 17:15] LABS: GLUCOMETER DEV NAME(LOC) 3E.I 2; GLUCOSE,POINT OF CARE 140 MG/DL (70-110)
[2024-04-02] MEDS: CIPROFLOXACIN HCL 0.2%/HYDROCORT 1% 10 ML OTIC SUSPENSION AD SCH (17:33)
[2024-04-02 20:08] VITALS: BP 111/55; PULSE 91; RESP 18; TEMP 97.5; O2SAT 98
[2024-04-03 05:41] LABS: GLUCOMETER DEV NAME(LOC) 3E.I 2; GLUCOSE,POINT OF CARE 114 MG/DL (70-110)
[2024-04-03 08:18] VITALS: BP 127/67; PULSE 79; RESP 18; TEMP 98; O2SAT 99
[2024-04-03 16:46] LABS: GLUCOMETER DEV NAME(LOC) 3EX.2; GLUCOSE,POINT OF CARE 91 MG/DL (70-110)
[2024-04-03 20:55] VITALS: BP 112/70; PULSE 84; RESP 18; TEMP 97.6; O2SAT 96
[2024-04-04 05:56] LABS: GLUCOMETER DEV NAME(LOC) 3E.I 2; GLUCOSE,POINT OF CARE 113 MG/DL (70-110)
[2024-04-04 08:59] VITALS: BP 121/81; PULSE 82; RESP 18; TEMP 98.1; O2SAT 98
[2024-04-04] MEDS: VENLAFAXINE HCL 150 MG ER CAPSULE PO SCH (09:58)
[2024-04-04 16:31] LABS: GLUCOMETER DEV NAME(LOC) 3E.I 2; GLUCOSE,POINT OF CARE 99 MG/DL (70-110)
[2024-04-04 21:41] VITALS: BP 105/61; PULSE 76; RESP 19; TEMP 97.5; O2SAT 97
[2024-04-05 06:11] LABS: GLUCOMETER DEV NAME(LOC) 3E.I 2; GLUCOSE,POINT OF CARE 155 MG/DL (70-110)
[2024-04-05 08:24] VITALS: BP 117/69; PULSE 83; RESP 17; TEMP 98; O2SAT 99
[2024-04-05 16:51] LABS: GLUCOMETER DEV NAME(LOC) 3EX.2; GLUCOSE,POINT OF CARE 83 MG/DL (70-110)
[2024-04-05 22:32] VITALS: BP 119/79; PULSE 83; RESP 18; TEMP 98; O2SAT 99
[2024-04-06 05:41] LABS: GLUCOMETER DEV NAME(LOC) 3E.I 2; GLUCOSE,POINT OF CARE 92 MG/DL (70-110)
[2024-04-06 08:00] VITALS: BP 142/87; PULSE 83; RESP 18; TEMP 96.8; O2SAT 95
[2024-04-06 11:40] VITALS: BP 138/72; PULSE 77; RESP 18; O2SAT 95
[2024-04-06 12:40] VITALS: RESP 18
[2024-04-06 16:55] LABS: GLUCOMETER DEV NAME(LOC) 3EX.2; GLUCOSE,POINT OF CARE 110 MG/DL (70-110)
[2024-04-06 17:50] LABS: GLUCOMETER DEV NAME(LOC) 3EX.2; GLUCOSE,POINT OF CARE 71 MG/DL (70-110)
[2024-04-06 21:36] VITALS: BP 130/72; PULSE 87; RESP 18; TEMP 96.6; O2SAT 99
[2024-04-07 08:21] VITALS: BP 122/74; PULSE 79; RESP 18; TEMP 97.3; O2SAT 97
[2024-04-07 10:38] VITALS: BP 126/74; PULSE 75; RESP 19; TEMP 97.9; O2SAT 98
[2024-04-07] MEDS: DIVALPROEX SODIUM 500 MG DR TABLET PO SCH (10:38)
[2024-04-07 17:25] LABS: GLUCOMETER DEV NAME(LOC) 3E.I 2; GLUCOSE,POINT OF CARE 83 MG/DL (70-110)
[2024-04-07 20:00] VITALS: BP 112/64; PULSE 78; RESP 19; TEMP 97.6; O2SAT 98
[2024-04-08 06:16] LABS: GLUCOMETER DEV NAME(LOC) 3E.I 2; GLUCOSE,POINT OF CARE 98 MG/DL (70-110)
[2024-04-08 08:15] VITALS: BP 130/65; PULSE 6; PULSE 76; RESP 17; TEMP 97.8; O2SAT 95
[2024-04-08 16:36] LABS: GLUCOMETER DEV NAME(LOC) 3E.I 2; GLUCOSE,POINT OF CARE 125 MG/DL (70-110)
[2024-04-08 20:18] VITALS: BP 137/65; PULSE 78; RESP 18; TEMP 97.8; O2SAT 98
[2024-04-09 06:16] LABS: GLUCOMETER DEV NAME(LOC) 3EX.2; GLUCOSE,POINT OF CARE 184 MG/DL (70-110)
[2024-04-09 06:16] LABS: GLUCOMETER DEV NAME(LOC) 3EX.2; GLUCOSE,POINT OF CARE 57 MG/DL (70-110)
[2024-04-09 08:51] VITALS: BP 143/83; PULSE 83; RESP 18; TEMP 97.9
[2024-04-09 17:30] LABS: GLUCOMETER DEV NAME(LOC) 3EX.2; GLUCOSE,POINT OF CARE 99 MG/DL (70-110)
[2024-04-09 21:36] VITALS: BP 110/60; PULSE 84; RESP 8; TEMP 97.8; O2SAT 97
[2024-04-10 06:21] LABS: GLUCOMETER DEV NAME(LOC) 3EX.2; GLUCOSE,POINT OF CARE 67 MG/DL (70-110)
[2024-04-10 06:21] LABS: GLUCOMETER DEV NAME(LOC) 3EX.2; GLUCOSE,POINT OF CARE 101 MG/DL (70-110)
[2024-04-10 08:21] LABS: BASOPHILS % (AUTO) 0.4 % (0.0-2.0); EOSINOPHILS % (AUTO) 2.6 % (1.0-6.0); HEMATOCRIT 39.7 % (36-46); LYMPHOCYTES # (AUTO) 1.1 K/uL (1.0-4.8); LYMPHOCYTES % (AUTO) 17.1 % (22.0-44.0); MEAN CORPUSCULAR HEMOGLOBIN 28.3 pg (26.0-34.0); MEAN CORPUSCULAR HGB CONC 32.7 G/dL (31.0-37.0); MEAN CORPUSCULAR VOLUME 87 fL (80-100); MONOCYTES # (AUTO) 0.5 K/uL (0.1-1.0); MONOCYTES % (AUTO) 7.1 % (2.0-9.0); NEUTROPHILS # (AUTO) 4.9 K/uL (1.8-7.7); NEUTROPHILS % (AUTO) 72.8 % (40.0-70.0); PLATELET COUNT (AUTO) 274 K/uL (150-450); RED BLOOD CELL COUNT(AUTO) 4.58 MIL/uL (4.00-5.20); WHITE BLOOD COUNT (AUTO) 6.7 K/uL (4.5-11.0)
[2024-04-10 08:30] VITALS: BP 116/76; PULSE 83; RESP 18; TEMP 97.6; O2SAT 99
[2024-04-10 08:31] LABS: ANION GAP 3 mmol/L (8-16); CALCIUM, TOTAL 9.3 mg/dL (8.8-10.5); CARBON DIOXIDE 33 mmol/L (22-29); CHLORIDE 102 mmol/L (98-107); CREATININE 0.49 mg/dL (0.60-1.30); GLOMERULAR FILTR. RATE CALC > 60 mL/min (>60); GLUCOSE,RANDOM 80 mg/dL (70-110); POTASSIUM 4.4 mmol/L (3.5-5.1); SODIUM SERUM 138 mmol/L (136-145); UREA NITROGEN, BLOOD 14 mg/dL (7-18)
[2024-04-10 17:21] LABS: GLUCOMETER DEV NAME(LOC) 3EX.2; GLUCOSE,POINT OF CARE 80 MG/DL (70-110)
[2024-04-10] MEDS ORDERED: LEVO75CA5 PO (19:04)
[2024-04-10] MEDS ORDERED: CIPOTIC AD (19:04)
[2024-04-10] MEDS ORDERED: DIVA-112 PO (19:04)
[2024-04-10] MEDS ORDERED: AMLO-257 PO (19:04)
[2024-04-10] MEDS ORDERED: VENL-68 PO (19:04)
[2024-04-10] MEDS ORDERED: QUET200T PO (19:04)
[2024-04-10 20:23] VITALS: BP 90/50; PULSE 92; RESP 17; TEMP 97.8; O2SAT 98
[2024-04-11 06:30] LABS: GLUCOMETER DEV NAME(LOC) 3EX.2; GLUCOSE,POINT OF CARE 77 MG/DL (70-110)
[2024-04-11 08:59] VITALS: BP 115/70; PULSE 90; RESP 18; TEMP 98.2; O2SAT 97
[2024-04-11 09:07] VITALS: BP 115/74; PULSE 83; RESP 18; TEMP 98; O2SAT 100
[2024-04-11] MEDS ORDERED: CIPOTIC AD (10:00)
[2024-04-11] MEDS ORDERED: LEVO75 PO (10:00)
[2024-04-11] MEDS ORDERED: FLUT16SP NASAL (10:00)
[2024-04-11] MEDS ORDERED: XALA2.5OS OU (10:00)
[2024-04-11] MEDS ORDERED: CARB-225 PO (10:00)
[2024-04-11] MEDS ORDERED: POLY17PO62 PO (10:00)
[2024-04-11] MEDS ORDERED: AMAN-24 PO (10:00)
[2024-04-11] MEDS ORDERED: AMLO-257 PO (10:00)
== END 2024-04-11 12:00 | disposition home or self-care (01) | DRG 885 ==
LOC: 3EX 03-09 17:51
PROVIDERS: ADMIT Psychiatry & Neurology Psychiatry; ATTEND Psychiatry & Neurology Psychiatry
PROC: GZHZZZZ Group Psychotherapy (ICD-10-PCS; principal; 2024-03-10)
PROC: GZ52ZZZ Individual Psychotherapy, Cognitive (ICD-10-PCS; 2024-03-10)
DX: F25.1 Schizoaffective disorder, depressive type (principal); N39.0 Urinary tract infection, site not specified; G20.A1 Parkinson's disease without dyskinesia, without mention of fluctuations; E03.9 Hypothyroidism, unspecified; E11.9 Type 2 diabetes mellitus without complications; E55.9 Vitamin D deficiency, unspecified; E78.5 Hyperlipidemia, unspecified; I10 Essential (primary) hypertension; K21.9 Gastro-esophageal reflux disease without esophagitis; K44.9 Diaphragmatic hernia without obstruction or gangrene; M19.90 Unspecified osteoarthritis, unspecified site; G47.00 Insomnia, unspecified; Z79.899 Other long term (current) drug therapy; Z88.1 Allergy status to other antibiotic agents; Z88.8 Allergy status to other drugs, medicaments and biological substances; Z91.048 Other nonmedicinal substance allergy status
CPT/HCPCS: 80048; 80053; 80061; 80307; 81001; 81003; 82962; 83036; 84443; 84484; 85025; 87077; 87081; 87086; 87186; 93005; 97110; 97116; 97163; 97167; 97530; 97535; G0378; Q0162